=== PATIENT | male | born 1985 | race Two or more races ===

== ENCOUNTER 2017-07-15 09:41 | Emergency (ER) | payer SELFPAY ==
--- NOTE | 2017-07-15 09:55 | NUR ---
WALKED OUT OF ER LOBBY---STATED DID NOT WANT TO BE SEEN
== END 2017-07-15 09:55 | disposition left against medical advice (07) ==
LOC: MED 09:41
DX: R05 Cough (principal); Z53.21 Procedure and treatment not carried out due to patient leaving prior to being seen by health care provider